=== PATIENT | female | born 1995 | race Two or more races ===

== ENCOUNTER 2018-02-21 17:40 | Emergency (ER) | payer OTHER ==
[~2018-02-21] VITALS: Ht 154.9 cm; Wt 45.8 kg
[2018-02-21 18:09] VITALS: BP 133/74
== END 2018-02-21 20:04 | disposition home or self-care (01) ==
LOC: ER 17:40
DX: S40.012A Contusion of left shoulder, initial encounter (principal); W01.0XXA Fall on same level from slipping, tripping and stumbling without subsequent striking against object, initial encounter; Y93.89 Activity, other specified; Y99.8 Other external cause status; Y92.89 Other specified places as the place of occurrence of the external cause
CPT/HCPCS: 73030